=== PATIENT | female | born 2000 | race Caucasian/White ===

== ENCOUNTER 2019-07-17 02:45 | Emergency (ER) | payer BC ==
[2019-07-17] MEDS ORDERED: methylPREDNISolone SODIUM SUC 125 MG/2 ML VIAL IM ONE (03:05)
[2019-07-17] MEDS ORDERED: FAMOTIDINE 20 MG TAB PO ONE (03:05)
--- NOTE | 2019-07-17 03:08 | ED.PDOC ---
History of Present Illness - General Chief Complaint: Allergic Reaction Stated Complaint: rash Time Seen by Provider: 07/17/19 03:05 Source: patient - History of Present Illness Timing/Duration: other - 3 days , started from leg now spreading all over associated with some eye swelling Improving Factors: nothing Worsening Factors: nothing Associated Symptoms: rash Allergies/Adverse Reactions: Allergies NO KNOWN ALLERGY Allergy (Verified 07/17/19 02:56) Home Medications: Ambulatory Orders Citalopram Hydrobromide [Citalopram] 07/17/19 Medroxyprogesterone Acetate (C [Medroxyprogesterone Aceta] 07/17/19 Norethindrone Acetate-Ethinyl [Lo Loestrin Fe 1 mg-10 Mcg / 10 Mcg] 07/17/19 hydrOXYzine HCl [Atarax] 25 mg PO Q6HR #20 tab 07/17/19 predniSONE 50 mg PO DAILY #5 tab 07/17/19 Review of Systems - Review of Systems Constitutional: States: no symptoms reported EENTM: States: no symptoms reported Respiratory: States: no symptoms reported Cardiology: States: no symptoms reported Gastrointestinal/Abdominal: States: no symptoms reported Genitourinary: States: no symptoms reported Musculoskeletal: States: no symptoms reported Skin: States: see HPI Neurological: States: no symptoms reported Endocrine: States: no symptoms reported Hematologic/Lymphatic: States: no symptoms reported All other Systems: Reviewed and Negative Past Medical History (General) - Patient Medical History Hx Diabetes: No Surgical History: tonsillectomy - Vaccination History Hx Influenza Vaccination: No - Female History Patient is a Female of Child Bearing Age (10 -59 yrs old): Yes Family Medical History - Family History Father Family History: Unknown Physical Exam - Physical Exam General Appearance: Alert Eye Exam: bilateral normal Ears, Nose, Throat: hearing grossly normal Neck: non-tender, full range of motion, supple Respiratory: lungs clear, normal breath sounds Cardiovascular/Chest: regular rate, rhythm Extremity: normal range of motion, non-tender, normal inspection Neurologic: no motor/sensory deficits, alert, normal mood/affect, oriented x 3 Skin Exam: rash Lymphatic: no adenopathy Departure - Departure Clinical Impression: Urticaria Time of Disposition: 03:08 Disposition: Discharge to Home or Self Care Condition: Good Departure Forms: ED Discharge - Pt. Copy, Patient Portal Self Enrollment Instructions: DI for Allergic Rhinitis, Skin Rash Diet: resume usual diet Activity: increase activity as tolerated, walking as tolerated Referrals: Jaiden Aaron MD [Primary Care Provider] - 1-2 Weeks Prescriptions: hydrOXYzine HCl [Atarax] 25 mg PO Q6HR #20 tab predniSONE 50 mg PO DAILY #5 tab Home Medications: Ambulatory Orders Citalopram Hydrobromide [Citalopram] 07/17/19 Medroxyprogesterone Acetate (C [Medroxyprogesterone Aceta] 07/17/19 Norethindrone Acetate-Ethinyl [Lo Loestrin Fe 1 mg-10 Mcg / 10 Mcg] 07/17/19 hydrOXYzine HCl [Atarax] 25 mg PO Q6HR #20 tab 07/17/19 predniSONE 50 mg PO DAILY #5 tab 07/17/19 Comments: follow up with PCP in 1-2 days Refer to skin clinic
[2019-07-17 03:26] VITALS: BP 123/84; TEMP 97; O2SAT 99
== END 2019-07-17 03:26 | disposition home or self-care (01) ==
LOC: ER 02:45
DX: L50.9 Urticaria, unspecified (principal)

== ENCOUNTER 2020-02-23 11:20 | Emergency (ER) | payer BC ==
--- NOTE | 2020-02-23 11:32 | ED.PDOC ---
History of Present Illness - General Time Seen by Provider: 02/23/20 11:30 Additional Information: 19-year-old female, not up-to-date on her tetanus no medical problems presents to the ER because of a cut to her left lower extremity. Patient states she was walking to get her clothes, from the laundry when there was a case of beer and obviously beer bottles, they fell and caught her on the leg No other signs of trauma - History of Present Illness Occurred: just prior to arrival Pain - Lower Extremity: moderate: Left Leg Method of Injury: incised Improving Factors: nothing Worsening Factors: nothing Allergies/Adverse Reactions: Allergies NO KNOWN ALLERGY Allergy (Verified 07/17/19 02:56) Home Medications: Ambulatory Orders Citalopram Hydrobromide [Citalopram] 07/17/19 Epinephrine [Epipen 2-Jay] 0.3 mg IJ ONCE #2 ml 07/17/19 Famotidine [Pepcid Tab] 20 mg PO BID #10 tab 07/17/19 Medroxyprogesterone Acetate (C [Medroxyprogesterone Aceta] 07/17/19 Norethindrone Acetate-Ethinyl [Lo Loestrin Fe 1 mg-10 Mcg / 10 Mcg] 07/17/19 hydrOXYzine HCl [Atarax] 25 mg PO Q6HR #20 tab 07/17/19 predniSONE 50 mg PO DAILY #5 tab 07/17/19 Review of Systems - Review of Systems Constitutional: States: no symptoms reported EENTM: States: no symptoms reported Respiratory: States: no symptoms reported Cardiology: States: no symptoms reported Gastrointestinal/Abdominal: States: no symptoms reported Genitourinary: States: no symptoms reported Musculoskeletal: States: no symptoms reported Skin: States: no symptoms reported Neurological: States: no symptoms reported Endocrine: States: no symptoms reported Hematologic/Lymphatic: States: no symptoms reported Past Medical History (General) - Patient Medical History Hx Diabetes: No - Vaccination History Hx Influenza Vaccination: No Family Medical History - Family History Father Family History: Unknown Physical Exam - Physical Exam General Appearance: Alert Eyes, Ears, Nose, Throat: PERRL/EOMI, normal ENT inspection, TMs normal Neck: non-tender, full range of motion, supple, normal inspection Cardiovascular/Respiratory: regular rate, rhythm, no M/R/G, normal peripheral pulses, no JVD, normal breath sounds, no respiratory distress Gastrointestinal/Abdominal: non-tender Back: normal inspection, no CVA tenderness Thigh/Hip: normal inspection, non-tender, no evidence of injury Leg: other - 3 Centimeter laceration noted in patient left lower extremity medial calf muscle area very superficial and not dirty Knee: normal inspection, non-tender, no evidence of injury, normal ROM, abrasions Ankle: normal inspection, non-tender, no evidence of injury, normal ROM Foot: normal inspection, non-tender, no evidence of injury, normal ROM Neuro/Tendon: normal sensation, normal motor functions, normal tendon functions Mental Status: alert, oriented x 3 Skin: normal color, warm/dry Progress - Progress Progress: 02/23/20 11:47 Laceration was repaired without any complications, wound was clean will still apply some saline, I did undress septic condition fix the laceration, patient received a tetanus shot and will discharge home with instruction to return in 10 days for suture removal. And also to keep the wound dry and clean, and clean the wound with water and soap 3 times a day may use triple antibiotics, also watch for any signs of infection Procedures - Laceration/Wound Repair Left Medial Calf Wound's Depth, Shape: superficial, linear Wound Explored: no foreign body removed Irrigated w/ Saline (cc's): 250 Betadine Prep?: Yes Anesthesia: 1% Lidocaine Wound Debrided: minimal Wound Repaired With: sutures Suture Size/Type: 4:0 Number of Sutures: 5 Layer Closure?: No Sterile Dressing Applied?: Yes Splint Applied?: No Sling Applied?: No Departure - Departure Clinical Impression: Leg laceration Qualifiers: Encounter type: initial encounter Laterality: left Qualified Code(s): S81.812A - Laceration without foreign body, left lower leg, initial encounter Disposition: Discharge to Home or Self Care Condition: Fair Instructions: DI for Laceration Repair -- Simple, How to Care for a Laceration After Repair Diet: resume usual diet Referrals: Jaiden Aaron MD [Primary Care Provider] - 1-2 Weeks Home Medications: Ambulatory Orders Citalopram Hydrobromide [Citalopram] 07/17/19 Epinephrine [Epipen 2-Jay] 0.3 mg IJ ONCE #2 ml 07/17/19 Famotidine [Pepcid Tab] 20 mg PO BID #10 tab 07/17/19 Medroxyprogesterone Acetate (C [Medroxyprogesterone Aceta] 07/17/19 Norethindrone Acetate-Ethinyl [Lo Loestrin Fe 1 mg-10 Mcg / 10 Mcg] 07/17/19 hydrOXYzine HCl [Atarax] 25 mg PO Q6HR #20 tab 07/17/19 predniSONE 50 mg PO DAILY #5 tab 07/17/19 Additional Instructions: Return to the ER believes any signs of infection such as fever pain pus or foul- smelling discharge
[2020-02-23] MEDS ORDERED: TETANUS,DIPHTHERIA,PERTUSSIS 1 EA SYG IM ONE (11:33)
[2020-02-23 11:45] VITALS: BP 108/84; TEMP 98; O2SAT 97
== END 2020-02-23 12:08 | disposition home or self-care (01) ==
LOC: ER 11:20
DX: S81.812A Laceration without foreign body, left lower leg, initial encounter (principal); W25.XXXA Contact with sharp glass, initial encounter; Y92.9 Unspecified place or not applicable